=== PATIENT | male | born 1980 | race Caucasian/White ===

== ENCOUNTER 2017-09-21 14:12 | Outpatient (RCR) | payer BC | END 2017-12-20 | disposition home or self-care (01) | LOC: LAB 14:12 | PROVIDERS: ATTEND Urology | DX: Z30.8 Encounter for other contraceptive management (principal) | CPT/HCPCS: 89321 ==

== ENCOUNTER 2018-08-03 11:15 | Outpatient (CLI) | payer BC ==
[~2018-08-03] VITALS: Ht 177.8 cm; Wt 90.7 kg
[2018-08-03] MEDS ORDERED: NF-ESOM40C PO (11:20)
== END 2018-08-03 11:50 | disposition home or self-care (01) ==
LOC: PREOP 11:15
PROVIDERS: ATTEND Surgery
DX: Z01.818 Encounter for other preprocedural examination (principal)

== ENCOUNTER 2018-08-05 10:30 | Day surgery (SDC) | payer BC ==
[~2018-08-05] VITALS: Ht 177.8 cm; Wt 90.7 kg
[~2018-08-05 10:30] MED LIST: NF-ESOM40C PO
[2018-08-05] MEDS ORDERED: NS IV 500 ML 500 ML ONE (10:39)
[2018-08-05] MEDS ORDERED: ONDANSETRON 4 MG/2 ML (SDV) Z0FRAN IV PRN (11:30)
[2018-08-05] MEDS ORDERED: ACETAMINOPHEN 325 MG TABLET PO PRN (11:30)
[2018-08-05] MEDS ORDERED: morphine INJ 10 MG/ML 1ML (SYR OR VIAL) IV PRN (11:30)
[2018-08-05] MEDS ORDERED: HYDROcodone/APAP 5 MG/325 MG (LORTAB) TAB PO PRN (11:30)
--- NOTE | 2018-08-05 11:30 | Progress Note-Pre Operative ---
Pre-Operative Progress Note H&P Reviewed The H&P was reviewed, patient examined and no changes noted. Date Seen by Provider: Aug 05, 2018 Time Seen by Provider: 11:20 Date H&P Reviewed: Aug 05, 2018 Time H&P Reviewed: :20 Pre-Operative Diagnosis: GERD, dysphagia MANSI DESOUZA MD Aug 05, 2018 11:30 am
--- NOTE | 2018-08-05 11:30 | Conscious Sedation/ASA ---
Conscious Sedation Pre-Proced Time Reviewed: 11:20 ASA Class: 1 Airway Mallampati Classification: ([place] appropriate class) I. II. III, IV Lungs Heart ASA score ASA 1: a normal healthy patient ASA 2: a patient with a mild systemic disease (mid diabetes, controlled hypertension, obesity ASA 3: a patient with a severe systemic disease that limits activity (angina , COPD, prior Myocardial infarction) ASA 4: a patient with an incapacitating disease that is a constant threat to life (CHF, renal failure) ASA 5: a moribund patient not expected to survive 24 hrs. (ruptured aneurysm) ASA 6: a declared brain patient whose organs are being harvested. For emergent operations, add the letter E after the classification Grade 2 Sedation Plan: Analgesia, Amnesia, Plan communicated to team members, Discussed options with patient/fam, Discussed risks with patient/fam Note The patient is an appropriate candidate to undergo the planned procedure, sedation, and anesthesia. The patient immediately re-assessed prior to indication. MANSI DESOUZA MD Aug 05, 2018 11:30 am
[2018-08-05] MEDS ORDERED: NS IV 500 ML 500 ML IV PRN (11:31)
[2018-08-05 11:45] VITALS: BP 122/91
[2018-08-05] MEDS ORDERED: MIDAZOLAM 2 MG/2 ML (VERSED) VIAL IVP ONE (11:45)
[2018-08-05] MEDS ORDERED: fentaNYL INJECTION 100 MCG/2 ML AMP IVP ONE (11:45)
[2018-08-05] MEDS ORDERED: LIDOCAINE JELLY 2% (XYLOCAINE) 5 ML TUBE MM PRN (11:45)
[2018-08-05] MEDS ORDERED: HURRICAINE EXT TUBE (BENZOCAINE) XX PRN (11:45)
[2018-08-05] MEDS ORDERED: LIDOCAINE JELLY 2% (XYLOCAINE) 5 ML TUBE ONE (12:01)
[2018-08-05] MEDS ORDERED: MIDAZOLAM 2 MG/2 ML (VERSED) VIAL ONE ×4 (12:02)
[2018-08-05] MEDS ORDERED: fentaNYL INJECTION 100 MCG/2 ML AMP ONE (12:02)
[2018-08-05] MEDS ORDERED: HURRICAINE EXT TUBE (BENZOCAINE) ONE (12:02)
--- NOTE | 2018-08-05 12:44 | Progress Note-Post Operative ---
Post-Operative Progess Note Surgeon (s)/Freelance Operator (s) Surgeon MANSI DESOUZA MD Freelance Operator: none Pre-Operative Diagnosis GERD, dysphagia Post-Operative Diagnosis reflux esopgagitis(stage 3), mild distal esophageal stricure vs. achalasia, small HH(2cm), mild-mod gastritis, mild duodenitis. Procedure & Operative Findings Date of Procedure 08/05/18 Procedure Performed/Findings EGD with bx and balloon dilatation. Anesthesia Type CS Estimated Blood Loss Estimated blood loss (mL): minimal Specimens/Packing Specimens Removed duodenum, GE jxn, antrum MANSI DESOUZA MD Aug 05, 2018 12:44 pm
--- NOTE | 2018-08-05 12:46 | Discharge Inst-Surgical ---
D/C Lap Instructions-LYLY Follow Up Appt in 2 weeks Activity as tolerated High Fiber Diet 25g or more per day Avoid Alcohol, Caffeine, Spicy [place] and Acid foods. Drink 64 fluid oz or more of fluids per day. Symptoms to Report: Fever over 101 degree F, Nausea/Vomiting If any problems/questions: Contact your physician or go to Emergency Room MANSI DESOUZA MD Aug 05, 2018 12:46 pm
[2018-08-05 13:00] VITALS: BP 115/70
[2018-08-05 13:25] VITALS: BP 114/83
[2018-08-05 13:41] VITALS: BP 114/83
--- NOTE | 2018-08-05 18:33 | OPERATIVE REPORT ---
DATE OF SERVICE: 08/05/2018 ATTENDING PRIMARY CARE PHYSICIAN: Dr. Kong. PREOPERATIVE DIAGNOSES: Gastroesophageal reflux disease and dysphagia. POSTOPERATIVE DIAGNOSES: Reflux esophagitis, stage III, with mild distal esophageal stricture; small hiatal hernia approximately 2 cm in size; mild to moderate gastritis and mild to moderate duodenitis. PROCEDURE: EGD with biopsy and balloon dilatation. SURGEON: Mansi Desouza MD ANESTHESIA: Conscious sedation. ESTIMATED BLOOD LOSS: Minimal. FINDINGS: Reflux esophagitis, stage III, with a mild distal esophageal stricture versus an achalasia. There was also a hiatal hernia approximately 2 cm in size, also visualizing the stricture. A mild to moderate gastritis was noted as well as a mild to moderate duodenitis, however, no ulcerations or any neoplasms. DISPOSITION: The patient tolerated the procedure well. INDICATIONS: The patient is a 37-year-old male who has had reflux and regurgitation for many years and has taken different medications over the past including Protonix and is currently on Nexium. He states that his symptoms have worsened and he does develop epigastric burning sensation as well as nocturnal cough and regurgitation, which have worsened. He states in the past several months he has had the development of dysphagia with difficulty swallowing of some solids. He does not drink much alcohol, does not use any tobacco products. He does state that caffeine as well as chocolate does make his symptoms worse. DESCRIPTION OF PROCEDURE: The patient was brought to the endoscopy suite, laid in the left lateral decubitus position. After adequate IV pain and sedative medications and conscious sedation anesthesia, the mouthpiece was applied. The endoscope was placed in the mouth, visualizing the pharynx and hypopharyngeal region. Vocal cords, epiglottis and vallecula identified and appeared to be normal. The endoscope was then gently intubated at the esophageal opening and esophagus insufflated. The endoscope was then advanced to the first, second and third portion of the esophagus at the level of the GE junction. The GE junction was intrathoracic consistent with a hiatal hernia. There was some what appeared to be a columnar metaplasia as well. There was a mild distal esophageal stricture identified as well versus a potential of an achalasia. A biopsy was taken with forceps with visualization of good hemostasis. The endoscope was then easily advanced in the stomach and endoscope retroflexed, visualizing a small hiatal hernia approximately 2 cm in size, which appeared to be a type 1. There was a mild to moderate gastritis as well as a mild to moderate duodenitis; however, no ulcerations or any neoplasms. A biopsy was taken of the stomach, antrum and duodenum with biopsy forceps with visualization of good hemostasis. We then proceeded with a trial of a balloon dilatation of the lower esophagus. A balloon was placed in the stomach and then brought back to the area of the stricture. The balloon was then dilated to 2 atmospheres of pressure or 18 mm in circumferential diameter with no resistance. We then proceeded to 4 atmospheres of pressure or 19 mm with mild resistance. We then proceeded to 6 atmospheres of pressure or 20 mm in diameter with mild to moderate resistance and left this in place for 60 seconds. The balloon was then desufflated and removed. There were no mucosal tears identified as well as no bleeding. The endoscope was then slowly withdrawn while taking a second look and suctioning of residual air with no additional findings. The patient tolerated the procedure well. We will have him continue with the Nexium for now as well as the necessary lifestyle and diet accommodation including small and more frequent meals, avoidance of eating at night as well as head elevation while lying supine. He also needs to avoid caffeinated beverages, spicy, greasy and acidic foods as well as chocolate and peppermint. We will await the biopsy results; however, if he continues to be symptomatic, we will proceed with an esophageal manometry study to rule out the etiology of his symptoms. He may benefit from repeat graded dilatation if it is achalasia; however, if this is due to a hiatal hernia, he may benefit from a hiatal hernia repair as well as an antireflux procedure. Job ID: [id number] DocumentID: [id number] Dictated Date: 08/05/2018 12:51:47 Job Placement Specialist Date: 08/05/2018 18:31:58 Dictated By: MANSI DESOUZA MD
== END 2018-08-05 13:30 | disposition home or self-care (01) ==
LOC: ENDO 10:30
PROVIDERS: ATTEND Surgery
DX: K21.0 Gastro-esophageal reflux disease with esophagitis (principal); K22.2 Esophageal obstruction; K44.9 Diaphragmatic hernia without obstruction or gangrene; K29.70 Gastritis, unspecified, without bleeding; K29.80 Duodenitis without bleeding
CPT/HCPCS: 88305

== ENCOUNTER → 2019-10-12 | Outpatient (CLI) | payer BC | LOC: CARD 12:55 | PROVIDERS: ATTEND Internal Medicine Interventional Cardiology | DX: I51.7 Cardiomegaly (principal); R07.2 Precordial pain; R06.02 Shortness of breath | CPT/HCPCS: 93306 ==

== ENCOUNTER → 2019-10-26 | Outpatient (CLI) | payer BC ==
[2019-11-07 13:24] VITALS: BP 149/93
--- NOTE | 2019-11-07 13:24 | Cardiology Stress Test Report ---
Stress Test Report Date of Procedure/Referring: Date of Procedure: Oct 26, 2019 PCP Florencio Coronado MD Admitting Physician Benigno Kong MD Indications: Shortness of breath, chest pain Baseline Heart Rate: 69 Baseline Blood Pressure: Blood Pressure Systolic: 149 Blood Pressure Diastolic: 93 Baseline EKG: Baseline EKG: sinus rhythm Summary/Conclusion: Summary: In summary, the patient started exercising with a baseline heart rate, blood pressure and EKG mentioned above Patient was able to exercise for a total of 10.39 minutes on Yoel protocol, 12.1 METs Maximum heart rate 174 BPM which is 95 percent of maximum predicted heart rate response. Maximum blood pressure 198/86 Stress EKG no stress EKG changes Recovery EKG normal Conclusion: 1. Excellent exercise tolerance. 2. Hypertensive response to exercise. 3. Negative stress test for ischemia. 4. No arrhythmia was noted Florencio CORONADO MD Nov 07, 2019 13:24 POS
== END ==
LOC: CARD 10:38
PROVIDERS: ATTEND Internal Medicine Interventional Cardiology
DX: R07.2 Precordial pain (principal); R06.02 Shortness of breath
CPT/HCPCS: 93017